=== PATIENT | male | born 1970 | race Caucasian/White ===

== ENCOUNTER → 2021-03-24 | Outpatient (CLI) | payer BC ==
--- NOTE | 2021-03-24 12:33 | PE ---
EXAMINATION TYPE: PET CT fusion skull to thigh DATE OF EXAM: 03/24/2021 COMPARISON: NONE at this institution. HISTORY: Unknown primary. Recent abnormal CT. TECHNIQUE: Following the intravenous administration of 10.42 mCi of F-18 FDG, whole body images are performed from the skull base to the midthigh. Images are reviewed on the computer in the coronal, a xial, and sagittal planes. Reconstructed rotating images are created on independent workstation and reviewed on the computer. A localization and attenuation correction CT is performed in conjunction with the PET scan. Blood glucose level equals 84. SCAN: Initial Scan FINDINGS: SKULL BASE AND NECK: No abnormal hypermetabolic uptake. CHEST, MEDIASTINUM, AND HILAR REGION: No abnormal hypermetabolic uptake. ABDOMEN AND PELVIS: Normal mild uptake along bowel loops in the upper to midabdomen just right of mid line, there is abnormal soft tissue inferiorly anterior to the pancreas and just inferior posterior t o this prominent fluid-filled small bowel loop axial image 154, irregular soft tissue measures 1.9 x 0.8 cm at this level. The max SUV is 3.88. Mild carrillo mesentery appearance inferior to this within prominent but subcentimeter lymp h nodes noted. No suspicious hypermetabolic uptake in the liver or spleen both which are normal in size. OSSEOUS STRUCTURES: No abnormal hypermetabolic uptake. OTHER CT: Large mucous retention cyst or polyp in the left maxillary sinus. Some dependent fluid in t he right maxillary sinus with smaller mucous retention cyst or polyp anterior inferior aspect. Scattered pelvic phleboliths. IMPRESSION: Carrillo mesentery appearance with single mildly hypermetabolic small soft tissue lesion pre sumed abnormal lymph node. Differential includes neoplasm such as lymphoma.
== END | disposition home or self-care (01) ==
LOC: RADPETMAIN 07:54
PROVIDERS: ATTEND Pediatrics
DX: R19.00 Intra-abdominal and pelvic swelling, mass and lump, unspecified site (principal)
CPT/HCPCS: 78815; A9552

== ENCOUNTER → 2024-05-29 | Outpatient (CLI) | payer BC ==
--- NOTE | 2024-05-29 16:33 | CA ---
Transthoracic Echo Report Name: Chinmay Evans Age: 53 Gender: M : 1970 Exam Date: 05/29/2024 13:32 Exam Location: [facility] Ht (in): 70 Wt (lb): 213 Ordering Physician: Guy Houser MD Attending/Referring Phys: Behavioral Instructor Diana Mcelroy RDCS Procedure CPT: Indications: Z01.818 Chemo exposure Cardiac Hx: Technical Quality: Good Contrast 1: Total Dose (mL): Contrast 2: Total Dose (mL): MEASUREMENTS (Male / Female) Normal Values 2D ECHO LV Diastolic Diameter PLAX 5.5 cm 4.2 - 5.9 / 3.9 - 5.3 cm LV Systolic Diameter PLAX 2.2 cm IVS Diastolic Thickness 1.0 cm 0.6 - 1.0 / 0.6 - 0.9 cm LVPW Diastolic Thickness 1.0 cm 0.6 - 1.0 / 0.6 - 0.9 cm LV Relative Wall Thickness 0.4 RV Internal Dim ED PLAX 3.5 cm LVOT Diameter 2.3 cm Aortic Root Diameter 3.5 cm LA Systolic Diameter LX 3.9 cm 3.0 - 4.0 / 2.7 - 3.8 cm LV Diastolic Volume MOD BP 111.3 cm??? 67 - 155 / 56 - 104 cm??? LV Systolic Volume MOD BP 37.8 cm??? 22 - 58 / 19 - 49 cm??? LV Ejection Fraction MOD BP 66.0 % >= 55 % LV Cardiac Index MOD BP 3059.6 cm???/min???m??? LV Diastolic Volume MOD 4C 126.7 cm??? LV Systolic Volume MOD 4C 45.1 cm??? LV Ejection Fraction MOD 4C 64.4 % LV Cardiac Index MOD 4C 3394.2 cm???/min???m??? LV Diastolic Length 4C 9.6 cm LV Systolic Length 4C 7.4 cm LV Diastolic Volume MOD 2C 95.6 cm??? LV Systolic Volume MOD 2C 31.3 cm??? LV Ejection Fraction MOD 2C 67.3 % LV Cardiac Index MOD 2C 2677.8 cm???/min???m??? LV Diastolic Length 2C 9.4 cm LV Systolic Length 2C 7.5 cm DOPPLER AV Peak Velocity 118.9 cm/s AV Peak Gradient 5.7 mmHg AV Mean Velocity 78.4 cm/s AV Mean Gradient 2.9 mmHg AV Velocity Time Integral 21.0 cm LVOT Peak Velocity 91.3 cm/s LVOT Peak Gradient 3.3 mmHg LVOT Velocity Time Integral 17.2 cm LVOT Stroke Volume 72.8 cm??? LVOT Stroke Volume Index 34.0 ml/m??? LVOT Cardiac Index 3030.9 cm???/min???m??? AV Area Cont Eq vti 3.5 cm??? AV Area Cont Eq pk 3.2 cm??? Mitral E Point Velocity 48.8 cm/s Mitral A Point Velocity 59.2 cm/s Mitral E to A Ratio 0.8 MV Deceleration Time 186.8 ms MV E' Velocity 6.9 cm/s Mitral E to MV E' Ratio 7.0 Right Atrial Pressure 5.0 mmHg FINDINGS Left Ventricle Left ventricular ejection fraction is estimated at 60-65 %. Left ventricular cavity size normal. Left ventricular wall thickness normal. No obvious regional wall motion abnormalities. Right Ventricle Normal right ventricular size and function. Unable to estimate the right ventricular systolic pressure. Right Atrium Normal right atrial size. Left Atrium Normal left atrial size. Mitral Valve Structurally normal mitral valve. No evidence for mitral valve prolapse. No mitral stenosis. Trace mitral regurgitation. Aortic Valve Trileaflet aortic valve. No aortic valve stenosis or regurgitation. Tricuspid Valve Structurally normal tricuspid valve. No tricuspid stenosis. No tricuspid regurgitation. Pulmonic Valve Structurally normal pulmonic valve. No pulmonic stenosis. Mild pulmonic regurgitation. Pericardium No pericardial effusion. Aorta Normal size aortic root and proximal ascending aorta. CONCLUSIONS Left ventricular ejection fraction 60-65% Trace mitral regurgitation No tricuspid regurgitation No pericardial effusion Previewed by: Dr. Roverto Elena DO (Electronically Signed) Final Date: 29 May 2024 16:32
== END | disposition home or self-care (01) ==
LOC: RADECHMAIN 13:25
PROVIDERS: ATTEND Internal Medicine Hematology & Oncology
DX: Z01.818 Encounter for other preprocedural examination (principal); I34.0 Nonrheumatic mitral (valve) insufficiency
CPT/HCPCS: 93306

== ENCOUNTER 2024-06-01 09:18 | Day surgery (SDC) | payer BC ==
[~2024-06-01 09:18] MED LIST: HYDROmorphone 0.5 MG/0.5 ML SYRINGE IVP PRN; MIDAZOLAM 2 MG/2 ML VIAL IV PRN; Pre Op ABX Message 1 EACH MISC MISCELLANE ONE; SCOPOLAMINE 1 MG/72 HR PATCH TRANSDERM ONE
[2024-06-01] MEDS: IV FLUID CONTINUATION 1,000 ML IV ONE (09:47)
[2024-06-01] MEDS: HEPARIN SODIUM,PORCINE 5,000 UNIT/ML 1 ML VIAL SQ STA (10:20)
[2024-06-01] MEDS: ACETAMINOPHEN TAB 500 MG TAB PO STA (10:21)
[2024-06-01] MEDS: ONDANSETRON 4 MG/2 ML VIAL IVP ONE (10:22)
[2024-06-01] MEDS: DEXAMETHASONE SOD PHOSPHATE 4 MG/ML 1 ML VIAL IV ONE (10:23)
[2024-06-01] MEDS: LACTATED RINGERS 1,000 ML IV SCH (10:24)
[2024-06-01] MEDS ORDERED: fentaNYL (PF) 50 MCG/ML 2 ML AMP ONE (11:01)
[2024-06-01] MEDS ORDERED: SUCCINYLCHOLINE CHLORIDE 200 MG/10 ML VIAL IV ONE (11:01)
[2024-06-01] MEDS ORDERED: PHENYLEPHRINE-0.9% NACL SYG 1,000 MCG/10 ML SYRINGE ONE (11:01)
[2024-06-01] MEDS ORDERED: LIDOCAINE 1% INJ 10MG/ML (20 ML MDV) ONE (11:01)
[2024-06-01] MEDS ORDERED: ePHEDrine 50 MG/ML 1 ML VIAL ONE (11:01)
[2024-06-01] MEDS ORDERED: MIDAZOLAM 2 MG/2 ML VIAL ONE (11:01)
[2024-06-01] MEDS ORDERED: PROPOFOL 10 MG/ML 20 ML VIAL IV ONE (11:01)
[2024-06-01] MEDS: SODIUM CHLORIDE 0.9% 100 ML with ceFAZolin 2,000 MG IV ONE (11:06)
[2024-06-01] MEDS: BUPIVACAINE (PF) 0.25% 30 ML VIAL SQ ONE ×2 (11:31)
[2024-06-01] MEDS: HEPARIN SODIUM,PORCINE 100 UNIT/ML 5 ML VIAL IV ONE (11:31)
[2024-06-01 12:34] VITALS: TEMP 97.5
--- NOTE | 2024-06-01 12:53 | P.OP ---
Date of Procedure: 06/01/24 Procedure(s) Performed: PREOPERATIVE DIAGNOSIS: Lymphoma, positive Cologuard POSTOPERATIVE DIAGNOSIS: Same, diverticulosis PROCEDURE: Port-A-Cath placement with fluoroscopic and ultrasound guidance, colonoscopy SURGEON: Jeane EBL: 5 cc ANESTHESIA: General COMPLICATIONS: None OPERATIVE PROCEDURE: Patient was brought and placed on the operative table in the supine position. The patient was placed under general anesthesia at that time. The chest and neck were prepped and draped in usual sterile fashion. The ultrasound probe was used to identify the location of the right internal jugular vein. The skin was localized with lidocaine. The Seldinger needle was advanced into the IJ under ultrasound guidance. The wire was advanced through the needle under fluoroscopic guidance into the superior vena cava. A port pocket was created in the right infraclavicular location. The catheter was tunneled from the wire entrance site to the port pocket. The port was then connected to the catheter. The dilator introducer was threaded over the guidewire. The guidewire and dilator were then removed. The catheter was advanced through the introducer and introducer was then removed. The tip was seen to be in the right atrial junction via fluoroscopy. A picture of the radiograph showing the tip of the catheter was taken. Port was flushed with both saline and a Hep-Lock solution. There was good flow both in and out of the port. The port was sutured in underlying tissues using 3-0 silk sutures. The subcutaneous tissues were reapproximated using 3-0 Vicryl sutures and the skin at both locations using 4-0 Monocryl sutures. Skin glue and sterile dressings then applied. Patient was then placed in the left cubitus position. The Olympus colonoscope was inserted into the anus and passed under direct visualization to the base of the cecum. The appendiceal orifice was visualized. From that point the scope was slowly withdrawn inspecting all surfaces carefully. There were no neoplastic inflammatory or polypoid lesions throughout the cecum, ascending, transverse, descending, sigmoid and rectum. There was mild left-sided diverticulosis noted. Digital rectal examination was normal. The patient was taken to the recovery room in stable condition per anesthesia guidelines. DISPOSITION: Stable to recovery room
--- NOTE | 2024-06-01 12:54 | P.GSHP ---
History of Present Illness H&P Date: 06/01/24 Chief Complaint: Lymphoma, positive Cologuard 53-year-old male presents today for Port-A-Cath placement and colonoscopy. Patient previously diagnosed with lymphoma. Starting chemotherapy in the near future for that. Also had a recent Cologuard test that was abnormal. No bowel complaints. No family history of colon cancer. Past Medical History Past Medical History: Asthma, Cancer, GERD/Reflux, Hypertension Additional Past Medical History / Comment(s): non hodgkins lymphoma, History of Any Multi-Drug Resistant Organisms: None Reported Past Surgical History: Orthopedic Surgery Additional Past Surgical History / Comment(s): deviated septum repair, rt knee ligament replacement, biopsy Past Anesthesia/Blood Transfusion Reactions: No Reported Reaction Smoking Status: Never smoker - Past Family History Father Family Medical History: Cancer Additional Family Medical History / Comment(s): lymphoma Medications and Allergies Home Medications Medication Instructions Recorded Confirmed Type Advair (Unk) 1 puff INHALATION BID 05/28/24 06/01/24 History Cetirizine HCl 10 mg PO DAILY PRN 05/28/24 06/01/24 History Omeprazole 20 mg PO DAILY 05/28/24 06/01/24 History lisinopriL [Lisinopril] 10 mg PO DAILY 05/28/24 06/01/24 History traMADol HCl [Ultram] 50 mg PO Q6H PRN #6 tab 06/01/24 Rx Allergies Allergy/AdvReac Type Severity Reaction Status Date / Time No Known Allergies Allergy Verified 06/01/24 09:59 Surgical - Exam Vital Signs Temp Pulse Resp BP Pulse Ox 97.4 F L 77 18 141/73 95 06/01/24 10:02 06/01/24 10:02 06/01/24 10:02 06/01/24 10:02 06/01/24 10:02 Physical exam: General: Well-developed, well-nourished HEENT: Normocephalic, sclerae nonicteric Abdomen: Nontender, nondistended Extremities: No edema Neuro: Alert and oriented Assessment and Plan (1) Lymphoma Narrative/Plan: Will proceed with Port-A-Cath placement and colonoscopy at this time. Risks of bleeding, infection, DVT, pneumothorax, catheter malfunction, anesthesia related complications were discussed. The patient understands and wishes to proceed. Current Visit: Yes Status: Acute Code(s): C85.90 - NON-HODGKIN LYMPHOMA, UNSPECIFIED, UNSPECIFIED SITE SNOMED Code(s): 124075460
--- NOTE | 2024-06-01 13:05 | XR ---
EXAMINATION TYPE: XR chest 1V confirm line [facility] DATE OF EXAM: 06/01/2024 COMPARISON: NONE CLINICAL INDICATION: Male, 53 years old with history of Check Line; TECHNIQUE: Single frontal view of the chest is obtained. FINDINGS: Right anterior chest wall injection port with catheter tip at the lower SVC level. Heart borderline e nlarged. Mild interstitial density. Left base underpenetrated and not well assessed. IMPRESSION: 1. Right anterior chest wall injection port with catheter tip at the lower SVC level. 2. Interstitial density, possible pulmonary vascular congestion. 3. Left base underpenetrated and not well assessed. [facility], , 06/01/2024 1:03 PM
[2024-06-01 13:33] VITALS: BP 118/84; PULSE 74; RESP 16
--- NOTE | 2024-06-01 13:43 | FL ---
EXAMINATION TYPE: FL guided central line placement DATE OF EXAM: 06/01/2024 FLUOROSCOPY Port-a-cath. 6 secs fl. DAP: 0.6564. Dr. Ching. One image is provided. [facility], Workstation: [id number], 06/01/2024 1:41 PM
== END 2024-06-01 14:03 | disposition home or self-care (01) ==
LOC: OR 09:18
PROVIDERS: ATTEND Surgery
DX: C85.90 Non-Hodgkin lymphoma, unspecified, unspecified site (principal); K57.30 Diverticulosis of large intestine without perforation or abscess without bleeding; K21.9 Gastro-esophageal reflux disease without esophagitis; I10 Essential (primary) hypertension; J45.909 Unspecified asthma, uncomplicated; F41.9 Anxiety disorder, unspecified; Z96.651 Presence of right artificial knee joint; Z45.2 Encounter for adjustment and management of vascular access device; Z79.51 Long term (current) use of inhaled steroids; Z79.899 Other long term (current) drug therapy
CPT/HCPCS: 77001; 45378; 36561; C1788; J2250; J0330; J1644; J1642; J1100; J2405; J0690; J2003; J3010; J2704; J2371; J0665